=== PATIENT | male | born 1975 | race African-American/Black ===

== ENCOUNTER 2017-04-04 02:46 | Emergency (ER) | payer OTHER ==
[~2017-04-04] VITALS: Ht 177.8 cm; Wt 92.1 kg
[2017-04-04 03:22] LABS: ALANINE AMINOTRANSFERASE 49 U/L (16-63); ALKALINE PHOSPHATASE 48 U/L (50-136); ASPARTATE AMINOTRANSFERASE 35 U/L (15-37); BILIRUBIN,DIRECT 0.5 mg/dL (0.0-0.2); BILIRUBIN,TOTAL 2.2 mg/dL (0.2-1.0); CARBON DIOXIDE 29 mmol/L (21-32); CHLORIDE 103 mmol/L (98-107); CREATININE 1.4 mg/dL (0.6-1.3); GLUCOSE 93 mg/dL (74-106); POTASSIUM 4.1 mmol/L (3.5-5.1); TOTAL PROTEIN, SERUM 7.7 g/dL (6.4-8.2); UREA NITROGEN, BLOOD 15 mg/dL (7-18)
[2017-04-04 03:25] LABS: ACETAMINOPHEN < 2.0 ug/mL (10-30)
[2017-04-04 03:31] LABS: ETHANOL < 3 MG/DL (0-0)
[2017-04-04 03:36] LABS: BASOPHILS % (AUTO) 0.2 % (0.0-2.0); EOSINOPHILS % (AUTO) 0.3 % (0.0-7.0); HEMATOCRIT 40.9 % (40-50); HEMOGLOBIN 13.7 G/DL (14.0-18.0); LYMPHOCYTES # (AUTO) 2.1 K/UL (0.8-4.8); LYMPHOCYTES % (AUTO) 29.6 % (20.5-51.5); MEAN CORPUSCULAR HEMOGLOBIN 29.3 UUG (27.0-31.0); MEAN CORPUSCULAR HGB CONC 34 g/dL (32.0-37.0); MEAN CORPUSCULAR VOLUME 87.4 FL (82.0-92.0); MONOCYTES # (AUTO) 0.6 K/UL (0.1-1.30); MONOCYTES % (AUTO) 8.2 % (0.0-11.0); NEUTROPHILS # (AUTO) 4.4 K/UL (1.8-8.9); NEUTROPHILS % (AUTO) 61.7 % (38.5-71.5); PLATELET COUNT (AUTO) 378 K/UL (150-450); RED BLOOD CELL COUNT(AUTO) 4.68 MIL/UL (4.7-6.1); WHITE BLOOD COUNT (AUTO) 7.1 K/UL (4.0-11.2)
--- NOTE | 2017-04-04 03:40 | NUR ---
Patient ate meal with no distress noted
--- NOTE | 2017-04-04 05:38 | NUR ---
Patient sleeping with no distress noted
--- NOTE | 2017-04-04 06:30 | NUR ---
PATIENT AMBULATED TO RESTROOM WITH STEADY GAIT
--- NOTE | 2017-04-04 06:50 | NUR ---
Patient discharged to home in stable conditon. verbal after care instructions given. DR MORELAND UNABLE TO LOG ON TO EXIT CARE FOR WRITTEN INSTRUCTION. Patient verbalizes understanding of instructions. WALKED OUT OF ER WITH STEADY GAIT. NO DISTRESS NOTED
[2017-04-04 06:52] VITALS: BP 150/85
== END 2017-04-04 06:52 | disposition home or self-care (01) ==
LOC: ER 02:53
DX: F16.10 Hallucinogen abuse, uncomplicated (principal); N28.9 Disorder of kidney and ureter, unspecified
CPT/HCPCS: 36415; 85025; A4663; G0480; G0480-TC